=== PATIENT | male | born 1940 | race Caucasian/White ===

== ENCOUNTER → 2017-07-14 | Outpatient (REF) | payer OTHER ==
[2017-07-14 18:50] LABS: APPEARANCE, URINE CLOUDY (CLEAR); BACTERIA, URINE AUTO NEGATIVE (NEGATIVE); BILIRUBIN, URINE AUTO NEGATIVE (NEGATIVE); BLOOD, URINE BLOOD 3+ (NEGATIVE); COLOR, URINE AMBER (YELLOW); GLUCOSE, URINE (UA) AUTO NEGATIVE (NEGATIVE); KETONE, URINE AUTO NEGATIVE (NEGATIVE); LEUKOCYTE ESTERASE, URINE AUTO NEGATIVE (NEGATIVE); MUCUS, URINE SMALL (NEGATIVE); NITRITE, URINE AUTO NEGATIVE (NEGATIVE); PROTEIN, URINE AUTO 1+ mg/dL (NEGATIVE); RBC, URINE AUTO TNTC /HPF (0-3); SPECIFIC GRAVITY URINE AUTO 1.021 (1.002-1.035); SQUAMOUS EPITHELIAL CELL UR AU 1 /HPF (0-6); UROBILINOGEN, URINE AUTO 0.2 mg/dL (0.0-2.0); WBC, URINE AUTO 75 /HPF (0-3)
== END ==
LOC: M SMT 16:54
DX: R31.0 Gross hematuria (principal)
CPT/HCPCS: 81001

== ENCOUNTER → 2017-07-28 | Outpatient (REF) | payer OTHER | LOC: M LAB REF 12:53 | DX: D23.12 Other benign neoplasm of skin of left eyelid, including canthus (principal) | CPT/HCPCS: 88305 ==

== ENCOUNTER 2017-09-01 07:28 | Day surgery (SDC) | payer OTHER ==
[2017-09-01] MEDS: LR 1,000 ML IV (07:45)
[2017-09-01 08:13] LABS: BEDSIDE GLUCOSE 144 MG/DL (83-110)
[2017-09-01] MEDS ORDERED: ROCURONIUM BROMIDE 50 MG/5 ML VIAL As Ordered ×3 (08:41→08:51)
[2017-09-01] MEDS ORDERED: SUGAMMADEX SODIUM 500 MG/5 ML VIAL (BRIDION) As Ordered (08:49)
[2017-09-01] MEDS ORDERED: LIDOCAINE 2% INJ 100 MG/5 ML SDV (FOR ANES.) As Ordered (08:51)
[2017-09-01] MEDS ORDERED: MIDAZOLAM INJ 2 MG/2 ML VIAL (J2250) As Ordered (08:51)
[2017-09-01] MEDS ORDERED: dexameTHASONE 4 MG/ML 1ML VIAL (J1100) As Ordered (08:51)
[2017-09-01] MEDS ORDERED: fentaNYL 100 MCG/2 ML INJECTION (J3010) As Ordered (08:51)
[2017-09-01] MEDS ORDERED: PROPOFOL 200 MG/20 ML VIAL As Ordered (08:51)
[2017-09-01] MEDS ORDERED: ONDANSETRON 4MG/2ML VIAL (J2405) As Ordered (08:51)
[2017-09-01] MEDS: fentaNYL 100 MCG/2 ML INJECTION (J3010) IV ×4 (09:25→09:40)
[2017-09-01] MEDS ORDERED: ACETAMINOPHEN TAB 650MG DOSE (2X325MG) PO (09:30)
[2017-09-01] MEDS ORDERED: HYDROMORPHONE HCL 0.5 MG/ 0.5 ML SYRINGE (J1170 PER 1) IV (09:30)
[2017-09-01] MEDS ORDERED: LR 1,000 ML IV (09:30)
[2017-09-01] MEDS ORDERED: ONDANSETRON 4MG/2ML VIAL (J2405) IV (09:30)
[2017-09-01] MEDS: PERCOCET 5MG/325MG TAB PO (09:30)
[2017-09-01] MEDS ORDERED: PERCOCET 5MG/325MG TAB As Ordered (11:21)
== END 2017-09-01 11:30 | disposition home or self-care (01) ==
LOC: M SDC 07:28
DX: C67.9 Malignant neoplasm of bladder, unspecified (principal); E11.9 Type 2 diabetes mellitus without complications; E03.9 Hypothyroidism, unspecified; Z79.82 Long term (current) use of aspirin; E78.5 Hyperlipidemia, unspecified; Z79.899 Other long term (current) drug therapy
CPT/HCPCS: 52235

== ENCOUNTER → 2018-01-16 | Outpatient (REF) | payer OTHER | LOC: M SMT 13:31 | DX: C67.9 Malignant neoplasm of bladder, unspecified (principal) | CPT/HCPCS: 88108 ==

== ENCOUNTER 2018-02-16 09:36 | Day surgery (SDC) | payer OTHER ==
[~2018-02-16] VITALS: Ht 174 cm; Wt 78.9 kg
[~2018-02-16 09:36] MED LIST: ASPI1TAB PO; CYCL10TA PO; DOXY100C PO; EQ A1TAB12 PO; FLOM0.4C39 PO; LEVO25TA5 PO; LEVO50TA5 PO; LIDO5TD TD; METF500T13 PO; MINO100C63 PO; MULT1TAB10 PO; STOO100C PO; TRAM50TA2 PO; VITA100067 PO; ZOCO20TA PO
[2018-02-16] MEDS ORDERED: LR 1,000 ML IV SCH ×2 (10:00→14:45)
[2018-02-16] MEDS ORDERED: dexameTHASONE 4 MG/ML 1ML VIAL (J1100) As Ordered ONE ×2 (10:41→12:37)
[2018-02-16] MEDS ORDERED: LIDOCAINE 2% INJ 100 MG/5 ML SDV (FOR ANES.) As Ordered ONE (10:41)
[2018-02-16] MEDS ORDERED: ONDANSETRON 4MG/2ML VIAL (J2405) As Ordered ONE (10:41)
[2018-02-16] MEDS ORDERED: fentaNYL 100 MCG/2 ML INJECTION (J3010) As Ordered ONE (10:41)
[2018-02-16] MEDS ORDERED: MIDAZOLAM INJ 2 MG/2 ML VIAL (J2250) As Ordered ONE (10:41)
[2018-02-16] MEDS ORDERED: PROPOFOL 200 MG/20 ML VIAL As Ordered ONE (10:41)
[2018-02-16] MEDS ORDERED: mitoMYcin 40MG VIAL (J9280 PER 5MG) INTRAVESIC ONE (11:55)
[2018-02-16] MEDS ORDERED: ROCURONIUM BROMIDE 50 MG/5 ML VIAL As Ordered ONE (12:37)
[2018-02-16] MEDS ORDERED: GLYCOPYRROLATE INJ 0.2 MG/ML 2 ML VIAL As Ordered ONE (14:03)
[2018-02-16] MEDS ORDERED: NEOSTIGMINE 10 MG/10 ML VIAL (J2710) As Ordered ONE (14:03)
[2018-02-16] MEDS ORDERED: oxyBUTYnin 5 MG TAB PO PRN (14:45)
[2018-02-16] MEDS ORDERED: ONDANSETRON 4MG/2ML VIAL (J2405) IV PRN (14:45)
[2018-02-16] MEDS ORDERED: ACETAMINOPHEN TAB 650MG DOSE (2X325MG) PO PRN (14:45)
[2018-02-16] MEDS: fentaNYL 100 MCG/2 ML INJECTION (J3010) IV PRN ×2 (14:47→14:53)
[2018-02-16] MEDS: PERCOCET 5MG/325MG TAB PO PRN ×2 (14:50→15:25)
[2018-02-16 15:50] VITALS: BP 148/76
--- NOTE | 2018-02-19 14:09 | RO ---
DATE OF PROCEDURE: 02/16/2018 PREPROCEDURE DIAGNOSIS: Bladder cancer. POSTPROCEDURE DIAGNOSIS: Bladder cancer. PROCEDURE: Cystoscopy, Transurethral Resection of Bladder Tumors (greater than 5 cm), intravesical mitomycin C installation. SURGEON: Cuauhtemoc Mora MD APPRAISER AUDITOR: None. ANESTHESIA: General. 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 On surveillance cystoscopy recently he was found to have five recurrent tumors. He is brought to the operating room today for the above listed procedure. DESCRIPTION OF PROCEDURE: The patient was brought to the operating room and general anesthesia was induced. Prophylactic antibiotics were infused. He was then placed in the dorsal lithotomy position and prepped and draped in the usual sterile fashion. A resectoscope was inserted into the urethral meatus and advanced to the bladder. The bladder was then thoroughly examined and notable for five papillary tumors, two of which were on the anterior wall and the remainder were on the posterior wall. All these tumors were then resected using the loop. I did not have to resect close to the ureteral orifices. Once all the tumors were resected the base of resections were electrocauterized using the coagulation current until there was excellent hemostasis. There was no concern for bladder perforation. All of the tumors were then removed using the LiquidCompass evacuator. Once all the tumor was removed, the resectoscope was removed and an #18-Italian three-way catheter was inserted into the bladder and the balloon was filled with 10 mL of sterile water. The irrigation port was hooked up to a 1 liter bag of saline and that was clamped. Through the main drainage port 40 mg of Mitomycin C reconstituted in 40 mL of water was slowly injected into the bladder. Once this was all inserted into the bladder, the syringe was removed and the main drainage port was plugged. This marked the conclusion of the procedure. The patient was then taken out of the dorsal lithotomy position, awakened from anesthesia and transported to the recovery room in stable condition. ESTIMATED BLOOD LOSS: 5 mL. COMPLICATIONS: None. SPECIMENS: Bladder tumors. PLAN: I will have the patient go to the recovery room and will have him keep the mitomycin C in his bladder for about one hour. I will have him turn from side to side every 15 minutes. After an hour, the mitomycin C will be drained out and then his bladder will be flushed out. We will put a plug on the irrigation port and send him home with the catheter to gravity drainage with the plan for followup in the clinic in the next few days for catheter removal. I will likely call him with the result of pathology. KARENA
== END 2018-02-16 17:26 | disposition home or self-care (01) ==
LOC: M SDC 09:36
PROVIDERS: ATTEND Urology
DX: C67.9 Malignant neoplasm of bladder, unspecified (principal); E78.00 Pure hypercholesterolemia, unspecified; R01.1 Cardiac murmur, unspecified; E11.9 Type 2 diabetes mellitus without complications; E03.9 Hypothyroidism, unspecified; M54.2 Cervicalgia; Z79.899 Other long term (current) drug therapy; Z79.82 Long term (current) use of aspirin; Z87.891 Personal history of nicotine dependence
CPT/HCPCS: 51720; 52240; 88307; J0690; J1100; J2250; J2405; J2710; J3010; J9280